=== PATIENT | male | born 1975 | race Caucasian/White ===

== ENCOUNTER → 2020-12-06 | Outpatient (CLI) | payer BC | LOC: KOH-I 13:29 | DX: R10.11 Right upper quadrant pain (principal); R31.9 Hematuria, unspecified; N20.0 Calculus of kidney | CPT/HCPCS: 74176 ==

== ENCOUNTER 2021-05-06 12:18 | Emergency (ER) | payer BC ==
[2021-05-06 13:11] LABS: HEMOGLOBIN 16.6 gm/dl (14.0-17.5)
[2021-05-06 13:54] LABS: BUN/CREATININE RATIO 12 (0-10)
[2021-05-06] MEDS ORDERED: IBUPROFEN600 MG PO (15:00)
== END 2021-05-06 15:10 | disposition home or self-care (01) ==
LOC: ER1 12:18
PROVIDERS: Nurse Practitioner
DX: R07.89 Other chest pain (principal); E78.5 Hyperlipidemia, unspecified; Z88.0 Allergy status to penicillin; Z20.822 Contact with and (suspected) exposure to COVID-19
CPT/HCPCS: 71045; 80053; 81001; 82550; 82553; 83874; 83880; 84484; 85025; 85379; 93005; 99285; U0002